=== PATIENT | male | born 1950 | race Caucasian/White ===

== ENCOUNTER 2019-09-14 07:31 | Emergency (ER) | payer OTHER ==
--- NOTE | 2019-09-14 07:49 | EKG ---
Test Date: 2019-09-14 Test Time: 07:30:57 Reel Cutter: ANDRAE MEASUREMENT RESULTS: Intervals: Rate: 69 [place]: 160 QRSD: 84 QT: 384 QTc: 411 [place]: P: 68 [place]: 160 QRS: 34 T: 107 INTERPRETIVE STATEMENTS: Normal sinus rhythm Nonspecific T wave abnormality Abnormal ECG No previous ECG available for comparison Electronically Signed On 09-14-19 07:48:57 CDT by Evaristo Carlton
[2019-09-14 07:55] LABS: Absolute Lymphocytes (CBC) 1.7 K/uL (0.7-4.9); Basophils % 0.7 % (0-1.3); Hematocrit 39.9 % (39.6-49.0); Lymphocytes % 22.9 % (15.3-44.8); MPV 8.2 fL (7.6-11.3); RBC Red Blood Cell Count 4.68 M/uL (4.33-5.43)
--- NOTE | 2019-09-14 08:10 | RAD REPORT ---
EXAM DESCRIPTION: CT - Head Brain Wo Cont - 09/14/2019 7:55 am CLINICAL HISTORY: Syncope COMPARISON: None TECHNIQUE: Computed axial tomography of the head was obtained. IV contrast was not requested. All CT scans are performed using dose optimization technique as appropriate and may include automated exposure control or mA/KV adjustment according to patient size. FINDINGS: An intracranial bleed is not seen . The ventricles are normal in caliber. No extra-axial fluid collection is noted. [id number] chronic ethmoid sinusitis IMPRESSION: No acute intracranial abnormality is seen. If patient's symptoms persist MRI of the bra in would be recommended.
[2019-09-14 08:13] LABS: ALT/SGPT 37 U/L (12-78); AST/SGOT 26 U/L (15-37); Albumin 4.1 g/dL (3.4-5.0); Alkaline Phosphatase 104 U/L (45-117); BUN Blood Urea Nitrogen 12 mg/dL (7-18); Bicarbonate 25 mmol/L (21-32); Bilirubin Direct 0.2 mg/dL (0-0.2); Bilirubin Total 0.6 mg/dL (0.2-1.0); Creatine Phosphokinase 43 U/L (39-308); Glucose Level 134 mg/dL (74-106); Lipase 232 U/L (73-393); Magnesium 1.6 mg/dL (1.8-2.4); Potassium 4.3 mmol/L (3.5-5.1); Sodium Level 139 mmol/L (136-145); Troponin (Emerg Dept Use Only) < 0.02 ng/mL (0.0-0.045)
[2019-09-14] MEDS ORDERED: MAGNESIUM SULFATE 1 gm IVPB 1 GM/100 ML BAG IV ONE (08:35)
--- NOTE | 2019-09-14 09:17 | RAD REPORT ---
EXAM DESCRIPTION: CT - Chest For Pe Angio - 09/14/2019 8:35 am CLINICAL HISTORY: Shortness of breath COMPARISON: None. TECHNIQUE: Dynamically enhanced axial 3 mm thick images of the chest were obtained during administra tion of <100> mL Isovue 370 IV contrast. Coronal and oblique reconstruction images were generated and reviewed. Exam utilizes a protocol for optimal evaluation of pulmonary arterial tree. Maximum intensity projections 3D imaging was utilized All CT scans are performed using dose optimization technique as appropriate and may include automated exposure control or mA/KV adjustment according to patient size. FINDINGS: A pulmonary embolus is not seen. A thoracic aortic aneurysm is not noted. A pleural effusion is not seen. A pericardial effusion is not seen. A lung consolidation is not present. Middle mediastinal and hilar lymph nodes are present varying in size from 1-2 centimeters. IMPRESSION: Negative for a pulmonary embolism. Mild to moderate mediastinal and hilar lymphadenopathy. This could indicate lymphoma, metastatic dise ase or be reactive in nature. Nuclear medicine PET-CT scan recommended for further evaluation
--- NOTE | 2019-09-14 10:51 | EDPHYS ---
Physician Documentation [facility] Name: Kyler Cantu Age: 69 yrs Sex: Male : 1950 Arrival Date: 09/14/2019 Time: 07:33 Bed 13 Private MD: ED Physician Hima Oviedo HPI: 09/14 07:35 This 69 yrs old Male presents to ER via Unassigned with complaints of syncope.rn 07:35 The patient has experienced syncope, lost consciousness. Onset: The symptoms/episode rn began/occurred just prior to arrival. Duration: This was a single episode, that lasted an unknown period of time. Context: occurred at work, occurred while the patient was standing. Associated signs and symptoms: Pertinent negatives: abdominal pain, ataxia, blurred vision, chest pain, combativeness, confusion, headache, seizure, shortness of breath, vertigo, vomiting, weakness. Current symptoms: Currently, the patient is not experiencing any symptoms. The patient has not experienced similar symptoms in the past. The patient has not recently seen a physician. Reports at work, standing at podium for meeting, had a strange smell and nausea, then passed out, single episode, no assoc chest pain. Reports woke up diaphoretic and a little sob, but now resolved and back to baseline. Was not standing for prolonged period of time. REports last LA 6 years ago. No hx of stroke. No focal neurological complaints or problems. NOrmal glucose per EMS. . Historical: - Allergies: 07:39 PENICILLINS; iw - Home Meds: 07:39 aspirin 81 mg Oral chew 1 tab once daily [Active]; Bystolic 20 mg oral tab 1 tab once iw daily [Active]; metformin 750 mg Oral Tb24 1 tab once daily [Active]; eplerenone 50 mg oral tab 1 tab once daily [Active]; rosuvastatin 20 mg oral tab 1 tab once daily [Active]; amlodipine 10 mg oral tab once daily [Active]; - PMHx: 07:39 Myocardial infarction; Hyperlipidemia; Hypertension; Diabetes - NIDDM; iw - PSHx: 07:39 CABG; Heart stents; back; iw - Immunization history:: Adult Immunizations. - Social history:: Smoking status: . - Ebola Screening: : Patient denies travel to an Ebola-affected area in the 21 days before illness onset Patient negative for fever greater than or equal to 101.5 degrees Fahrenheit, and additional compatible Ebola Virus Disease symptoms Patient denies exposure to infectious person Patient denies travel to an Ebola-affected area in the 21 days before illness onset No symptoms or risks identified at this time. - Family history:: not pertinent. - Hospitalizations: : No recent hospitalization is reported. ROS: 07:35 Constitutional: Negative for fever, chills, and weight loss, Eyes: Negative for injury, rn pain, redness, and discharge, ENT: Negative for injury, pain, and discharge, Neck: Negative for injury, pain, and swelling, Cardiovascular: Negative for chest pain, palpitations, and edema, Respiratory: Negative for shortness of breath, cough, wheezing, and pleuritic chest pain, Abdomen/GI: Negative for abdominal pain, vomiting, diarrhea, and constipation, Back: Negative for injury and pain, MS/Extremity: Negative for injury and deformity, Skin: Negative for injury, rash, and discoloration, Neuro: Negative for headache, weakness, numbness, tingling, and seizure. Exam: 07:35 Constitutional: This is a well developed, well nourished patient who is awake, alert, rn and in no acute distress. Head/Face: Normocephalic, atraumatic. Eyes: Pupils equal round and reactive to light, extra-ocular motions intact. Lids and lashes normal. Conjunctiva and sclera are non-icteric and not injected. Cornea within normal limits. Periorbital areas with no swelling, redness, or edema. ENT: MMM Neck: Trachea midline, no thyromegaly or masses palpated, and no cervical lymphadenopathy. Supple, full range of motion without nuchal rigidity, or vertebral point tenderness. No Meningismus. Cardiovascular: Regular rate and rhythm. No gallops, murmurs, or rubs. No JVD. No pulse deficits. Respiratory: Lungs have equal breath sounds bilaterally, clear to auscultation. No increased work of breathing, no retractions or nasal flaring. Abdomen/GI: soft, non-tender Skin: Warm, dry MS/ Extremity: Pulses equal, no cyanosis. Neurovascular intact. Full, normal range of motion. Equal circumference. Neuro: Awake and alert, GCS 15, oriented to person, place, time, and situation. Cranial nerves II-XII grossly intact. Motor strength 5/5 in all extremities. Sensory grossly intact. Cerebellar exam normal. 08:22 ECG was reviewed by the Attending Physician. rn Vital Signs: 07:34 BP 164 / 82; Pulse 73; Resp 19; Temp 97.6; Pulse Ox 98% on R/A; Weight 81.65 kg; Height iw 6 ft. 1 in. (185.42 cm); Pain 0/10; 08:58 BP 138 / 85; Pulse 67; Resp 15; Pulse Ox 98% on R/A; tw2 09:38 BP 135 / 97; Pulse 64; Resp 17; Pulse Ox 97% on R/A; tw2 10:32 BP 136 / 72; Pulse 60; Resp 20; Pulse Ox 95% on R/A; tw2 07:34 Body Mass Index 23.75 (81.65 kg, 185.42 cm) iw MDM: 07:34 Patient medically screened. rn 09:32 ED course: CT PE negative for PE/pericardial effusion. Shows lymphadenopathy, rn nonspecific. Normal WBC, hasn't smoked for 50 years, no night sweats or weight loss. Patient still asymptomatic, offered him observation in hospital for syncope and a few more tests, patient states feels fine and wants to go home. Told him I would like to atleast get carotid u/s to rule out carotid flow problem given heart disease, patient agrees. Also notified of lymphadenopathy and will need further w/u as outpt. . 10:48 Differential Diagnosis: cardiac arrhythmia, cerebrovascular accident, idiopathic rn syncope, transient ischemic attack, vasovagal episode, dehydration, cardiac event. Data reviewed: vital signs, nurses notes, lab test result(s), EKG, radiologic studies, CT scan, doppler, and as a result, I will discharge patient. Counseling: I had a detailed discussion with the patient and/or guardian regarding: the historical points, exam findings, and any diagnostic results supporting the discharge/admit diagnosis, lab results, radiology results, the need for outpatient follow up, to return to the emergency department if symptoms worsen or persist or if there are any questions or concerns that arise at home. Response to treatment: the patient's symptoms have resolved after treatment, the patient's condition has returned to base line, the patient is now symptom free, patient is well hydrated. and as a result, I will discharge patient. ED course: Repeat troponin negative. Bilateral carotid doppler with some mild disease. Patient still asymptomatic and wishes to go home. Will f/u as recommended with Dr. Gutierrez for nonspecific mediastinal LAD. . 09/14 07:35 Order name: Lipase; Complete Time: 08:14 rn 09/14 07:35 Order name: Basic Metabolic Panel; Complete Time: 08:14 rn 09/14 07:35 Order name: CBC with Diff rn 09/14 07:35 Order name: Ckmb; Complete Time: 08:14 rn 09/14 07:35 Order name: CPK; Complete Time: 08:14 rn 09/14 07:35 Order name: Hepatic Function; Complete Time: 08:14 rn 09/14 07:35 Order name: CT Head Brain wo Cont; Complete Time: 08:14 rn 09/14 07:35 Order name: Magnesium; Complete Time: 08:14 rn 09/14 07:35 Order name: Troponin (emerg Dept Use Only); Complete Time: 08:14 rn 09/14 08:16 Order name: CT Chest For PE Angio; Complete Time: 09:19 rn 09/14 09:31 Order name: Carotid Artery Bilateral US rn 09/14 09:42 Order name: Troponin (emerg Dept Use Only); Complete Time: 10:48 tw2 09/14 07:35 Order name: EKG; Complete Time: 07:37 rn 09/14 07:35 Order name: Cardiac monitoring; Complete Time: 08:05 rn 09/14 07:35 Order name: EKG - Nurse/Tech; Complete Time: 08:05 rn 09/14 07:35 Order name: IV Saline Lock; Complete Time: 08:06 rn 09/14 07:35 Order name: Labs collected and sent; Complete Time: 08:06 rn 09/14 07:35 Order name: NPO; Complete Time: 08:06 rn 09/14 07:35 Order name: O2 Per Protocol; Complete Time: 08:06 rn 09/14 07:35 Order name: O2 Sat Monitoring; Complete Time: 08:06 rn EC:22 Rate is 69 beats/min. Rhythm is regular. QRS Elim is Normal. TN interval is normal. QRS rn interval is normal. QT interval is normal. No Q waves. T waves are Inverted in leads I, aVL. No ST changes noted. Clinical impression: NSR w/ Non-specific ST/T Changes. Interpreted by me. Reviewed by me. Administered Medications: 08:50 Drug: Magnesium Sulfate 1 grams Route: IVPB; Infused Over: 1 hrs; Site: right hand; tw2 09:48 Follow up: Response: No adverse reaction; IV Status: Completed infusion tw2 Disposition: 09/14/19 10:51 Discharged to Home. Impression: Syncope and collapse. - Condition is Stable. - Discharge Instructions: Syncope, Lymphadenopathy. - Medication Reconciliation Form, Thank You Letter, Antibiotic Education, Prescription Opioid Use, Work release form form. - Follow up: Private Physician; When: As needed; Reason: Recheck today's complaints, Re-evaluation by your physician. - Problem is new. - Symptoms have improved. Signatures: Dispatcher [employer] EDMS Terri Scott RN RN iw Nieto, Roman, MD MD rn Wise, Tara, RN RN tw2 Corrections: (The following items were deleted from the chart) 08:22 08:15 Neck Angio+CT.RAD.BRZ ordered. EDLA EDMS 08:22 08:15 Head Angio+CT.RAD.BRZ ordered. [facility] EDLA 11:01 10:51 09/14/2019 10:51 Discharged to Home. Impression: Syncope and collapse. Condition tw2 is Stable. Forms are Work release form, Medication Reconciliation Form, Thank You Letter, Antibiotic Education, Prescription Opioid Use. Follow up: Private Physician; When: As needed; Reason: Recheck today's complaints, Re-evaluation by your physician. Problem is new. Symptoms have improved. rn
--- NOTE | 2019-09-14 10:51 | ER ---
Nurse's Notes [facility] Name: Kyler Cantu Age: 69 yrs Sex: Male : 1950 Arrival Date: 09/14/2019 Time: 07:33 Bed 13 Private MD: Diagnosis: Syncope and collapse Presentation: 09/14 07:35 Presenting complaint: Patient states: was in safety meeting, standing, got a weird iw smell in his nose then felt nauseous, then he was on the ground, pt woke up and felt sweaty but felt like his normal self, denies headache, dizziness, or weakness, denies chest pain, + hx of OR with stents placed X 6 years ago. Transition of care: patient was not received from another setting of care. Onset of symptoms was September 14, 2019. Risk Assessment: Do you want to hurt yourself or someone else? Patient reports no desire to harm self or others. Initial Sepsis Screen: Does the patient meet any 2 criteria? No. Patient's initial sepsis screen is negative. Does the patient have a suspected source of infection? No. Patient's initial sepsis screen is negative. Care prior to arrival: Glucose check: 189. 07:35 Method Of Arrival: EMS: [facility] iw 07:35 Acuity: JESSICA 2 iw Historical: - Allergies: 07:39 PENICILLINS; iw - Home Meds: 07:39 aspirin 81 mg Oral chew 1 tab once daily [Active]; Bystolic 20 mg oral tab 1 tab once iw daily [Active]; metformin 750 mg Oral Tb24 1 tab once daily [Active]; eplerenone 50 mg oral tab 1 tab once daily [Active]; rosuvastatin 20 mg oral tab 1 tab once daily [Active]; amlodipine 10 mg oral tab once daily [Active]; - PMHx: 07:39 Myocardial infarction; Hyperlipidemia; Hypertension; Diabetes - NIDDM; iw - PSHx: 07:39 CABG; Heart stents; back; iw - Immunization history:: Adult Immunizations. - Social history:: Smoking status: . - Ebola Screening: : Patient denies travel to an Ebola-affected area in the 21 days before illness onset Patient negative for fever greater than or equal to 101.5 degrees Fahrenheit, and additional compatible Ebola Virus Disease symptoms Patient denies exposure to infectious person Patient denies travel to an Ebola-affected area in the 21 days before illness onset No symptoms or risks identified at this time. - Family history:: not pertinent. - Hospitalizations: : No recent hospitalization is reported. Screenin:35 Abuse screen: Denies threats or abuse. Nutritional screening: No deficits noted. tw2 Tuberculosis screening: No symptoms or risk factors identified. Fall Risk None identified. Assessment: 07:40 General: Appears in no apparent distress. Behavior is calm, cooperative, appropriate tw2 for age. Pain: Denies pain. Neuro: Level of Consciousness is awake, alert, obeys commands, Oriented to person, place, time, situation. Cardiovascular: Denies chest pain, shortness of breath, Heart tones S1 S2 Patient's skin is warm and dry. Respiratory: Airway is patent Respiratory effort is even, unlabored, Respiratory pattern is regular, symmetrical, Breath sounds are clear bilaterally. GI: No signs and/or symptoms were reported involving the gastrointestinal system. Abdomen is flat, Bowel sounds present X 4 quads. : No signs and/or symptoms were reported regarding the genitourinary system. EENT: No signs and/or symptoms were reported regarding the EENT system. Derm: No signs and/or symptoms reported regarding the dermatologic system. Musculoskeletal: Range of motion: intact in all extremities. 08:58 Reassessment: Patient appears in no apparent distress at this time. No changes from tw2 previously documented assessment. Patient and/or family updated on plan of care and expected duration. Pain level reassessed. Patient is alert, oriented x 3, equal unlabored respirations, skin warm/dry/pink. 09:57 Reassessment: US at bedside at this time. tw2 10:32 Reassessment: Patient appears in no apparent distress at this time. No changes from tw2 previously documented assessment. Patient and/or family updated on plan of care and expected duration. Pain level reassessed. Patient is alert, oriented x 3, equal unlabored respirations, skin warm/dry/pink. 11:00 Reassessment: Patient appears in no apparent distress at this time. No changes from tw2 previously documented assessment. Patient and/or family updated on plan of care and expected duration. Pain level reassessed. Patient is alert, oriented x 3, equal unlabored respirations, skin warm/dry/pink. Vital Signs: 07:34 BP 164 / 82; Pulse 73; Resp 19; Temp 97.6; Pulse Ox 98% on R/A; Weight 81.65 kg; Height iw 6 ft. 1 in. (185.42 cm); Pain 0/10; 08:58 BP 138 / 85; Pulse 67; Resp 15; Pulse Ox 98% on R/A; tw2 09:38 BP 135 / 97; Pulse 64; Resp 17; Pulse Ox 97% on R/A; tw2 10:32 BP 136 / 72; Pulse 60; Resp 20; Pulse Ox 95% on R/A; tw2 07:34 Body Mass Index 23.75 (81.65 kg, 185.42 cm) iw ED Course: 07:30 EKG done, by certified hyperbaric technician. reviewed by Hima Oviedo MD. at1 07:33 Patient arrived in ED. rn 07:34 Hima Oviedo MD is Attending Physician. rn 07:34 Khalida Estevez RN is Primary Nurse. tw2 07:35 Arm band placed on. tw2 07:35 Placed in gown. Bed in low position. Call light in reach. monitoring tech on. Pulse ox tw2 on. NIBP on. 07:43 Initial lab(s) drawn, by sd, sent to lab. Inserted saline lock: 20 gauge in right dh3 forearm, using aseptic technique. 07:45 Triage completed. iw 08:00 CT Head Brain wo Cont In Process Unspecified. EDMS 08:36 CT Chest For PE Angio In Process Unspecified. EDMS 09:48 Troponin (emerg Dept Use Only) Sent. tw2 10:10 Carotid Artery Bilateral US In Process Unspecified. EDMS 10:34 Ultrasound completed. Patient tolerated well. lc3 10:54 No provider procedures requiring assistance completed. IV discontinued, intact, tw2 bleeding controlled, No redness/swelling at site. Pressure dressing applied. Administered Medications: 08:50 Drug: Magnesium Sulfate 1 grams Route: IVPB; Infused Over: 1 hrs; Site: right hand; tw2 09:48 Follow up: Response: No adverse reaction; IV Status: Completed infusion tw2 Outcome: 10:51 Discharge ordered by . rn 11:01 Discharged to home ambulatory. tw2 11:01 Condition: stable 11:01 Discharge instructions given to patient, Instructed on discharge instructions, follow up and referral plans. Demonstrated understanding of instructions, follow-up care. 11:01 Patient left the ED. tw2 Signatures: Dispatcher [employer] Terri Keller, RN RN iw Hima Oviedo MD MD rn Khalida Person, seed packer EKG Tat1 Kirill Ulrich Tara, RN RN tw2 Ching Amador 3 Corrections: (The following items were deleted from the chart) 07:37 07:34 BP 164 / 82; Pulse 73bpm; Resp 19bpm; Pulse Ox 98% RA; tw2 iw
[2019-09-14 11:07] VITALS: TEMP 97.6
[2019-09-14 11:10] VITALS: BP 136/72; O2SAT 95
--- NOTE | 2019-09-14 11:22 | RAD REPORT ---
EXAM DESCRIPTION: - CP - 09/14/2019 10:30 am CLINICAL HISTORY: Syncope COMPARISON: None. TECHNIQUE: Real-time sonographic evaluation of both carotid systems was performed. Tariq scale and Do ppler interrogation were performed with waveform tracing bilaterally. FINDINGS: Normal high resistance waveforms are noted in both external carotid arteries. The common c arotid arteries and internal carotid arteries show normal low resistance waveforms. Calcified plaquing changes are present in the right carotid bulb and extending into the proximal most aspect of the right internal carotid artery. Similar calcified plaquing changes are present in the l eft carotid bulb and proximal most left ICA. Peak systolic and end diastolic velocity values and the ICA/CCA ratios are in the non-hemodynamically significant range. Antegrade flow seen in both vertebral arteries. Velocity values and ratios were recorded and are retained in the patient's imaging records. IMPRESSION: Bilateral carotid bulb and proximal internal carotid artery calcified plaquing changes. Visually the plaquing changes do not significantly narrow the vessel lumen. No evidence of a hemodynamically significant stenosis.
== END 2019-09-14 11:01 | disposition home or self-care (01) ==
LOC: ER 07:31
DX: R55 Syncope and collapse (principal); I10 Essential (primary) hypertension; E11.9 Type 2 diabetes mellitus without complications; E78.5 Hyperlipidemia, unspecified; I25.2 Old myocardial infarction; Z79.82 Long term (current) use of aspirin; Z88.0 Allergy status to penicillin; Z95.1 Presence of aortocoronary bypass graft; Z95.818 Presence of other cardiac implants and grafts
CPT/HCPCS: 96365; 93005; 85025; 80048; 36415; 83735; 82550; 80076; 84484 ×2; 82553; 83690; 70450; 71275; 93880; 99285; Q9967; J3475